=== PATIENT | male | born 1975 | race Two or more races ===

== ENCOUNTER 2017-11-15 08:50 | Day surgery (SDC) | payer OTHER ==
[~2017-11-15 08:50] MED LIST: DOLOGEN CAPLET1 EACH PO; ORPH100T PO
== END 2017-11-15 13:10 | disposition home or self-care (01) ==
LOC: AMB-ENDOS 08:50
DX: D12.8 Benign neoplasm of rectum (principal); Z80.0 Family history of malignant neoplasm of digestive organs

== ENCOUNTER 2019-08-17 14:03 | Outpatient (CLI) | payer OTHER | END 2019-08-17 14:08 | disposition home or self-care (01) | LOC: RAD 14:03 | DX: M77.31 Calcaneal spur, right foot (principal) ==

== ENCOUNTER 2021-03-12 15:20 | Outpatient (CLI) | payer OTHER | END 2021-03-12 15:30 | disposition home or self-care (01) | LOC: RAD 15:20 | PROVIDERS: ATTEND Physical Medicine & Rehabilitation | DX: M19.042 Primary osteoarthritis, left hand (principal) ==

== ENCOUNTER 2023-01-28 07:38 | Outpatient (CLI) | payer OTHER | END 2023-01-28 07:52 | disposition home or self-care (01) | LOC: TOM 07:38 | PROVIDERS: ATTEND Surgery | DX: D12.8 Benign neoplasm of rectum (principal); D12.1 Benign neoplasm of appendix; D37.3 Neoplasm of uncertain behavior of appendix; Z80.0 Family history of malignant neoplasm of digestive organs; Z83.71 Family history of colonic polyps ==